=== PATIENT | female | born 2000 | race American Indian/Alaskan Native ===

== ENCOUNTER 2019-06-27 10:45 | Outpatient (CLI) | payer MEDICAID ==
[2019-06-30 11:54] VITALS: BP 122/68
== END 2019-06-27 13:42 | disposition home or self-care (01) ==
LOC: TRG 10:45 → APU 11:11 → TRG 13:42
PROVIDERS: ATTEND Obstetrics & Gynecology
DX: O46.8X3 Other antepartum hemorrhage, third trimester (principal); Z3A.32 32 weeks gestation of pregnancy
CPT/HCPCS: 59025